=== PATIENT | male | born 1955 | race Caucasian/White ===

== ENCOUNTER → 2016-05-18 | Day surgery (SDC) | payer OTHER ==
[~2016-05-18] MED LIST: ACETAMINOPHEN 1000 MG/100 ML VIAL IV ONE; BUPIVACAINE LIPOSOME PF 1.3% 20 ML VIAL ONE; KETOROLAC TROMETHAMINE 30 MG/ML (IVP) VIAL IV PUSH ONE; LACTATED RINGER'S 1000 ML INJ 1,000 ML ONE; MEPERIDINE HCL 25 MG/ML VIAL ONE; MIDAZOLAM HCL 2 MG/2 ML VIAL ONE; ONDANSETRON HCL 4 MG/2 ML VIAL IV PUSH ONE; PROPOFOL 200 MG/20 ML AMP IV ONE; ceFAZolin 2 GM PREMIX 50 ML ONE
--- NOTE | 2016-05-22 18:29 | MP ---
cc: JUSTIN MCCOY DATE OF SURGERY: 05/18/2016 PREOPERATIVE DIAGNOSIS: Left inguinal hernia. POSTOPERATIVE DIAGNOSIS: Left inguinal hernia. OPERATION: Repair of left inguinal hernia with Procrit mesh. SURGEON: Justin Mccoy MD. ANESTHESIA: General. OPERATIVE FINDINGS: The patient was seen to have a thin walled but large indirect hernia sac. There is a large lipoma in the cord. There is no evidence of incarcerated visceral. No other abnormalities were noted. OPERATIVE PROCEDURE: The patient was brought to the Recovery Room and after satisfactory sedation by Anesthesia the left groin was prepped and draped in the usual sterile fashion. Using Exparel, local anesthesia was achieved and a transverse left inguinal incision was made, carried out sharply through the subcutaneous tissue, with the cautery being is hemostasis. The incision was carried down to the external oblique fascia which was opened in direction of its fibers down to and through the external ring. The underside of the fascia was cleaned and spermatic cord isolated with a [place] drain. The hernia sac was identified and dissected free from the cord structures down to the internal ring where it was circumferentially scored to allow complete reduction within the properitoneal space. The lipoma the cord was dissected free and discarded. Hemostasis was strictly assured. The inguinal floor was then reconstructed with interrupted 0 Vicryl sutures which were brought between the internal oblique and the shelving edge of the inguinal ligament. The internal ring was thus recreated as well. A piece of [employer] mesh was cut to the appropriate shape and secured anterior to the repair by pressing its posterior Vicryl hooks into the surrounding tissue. It was wrapped around the cord laterally and then secured to itself medially. The mesh was then secured to the pubis with a 0 Prolene suture. The repair was checked and found to be intact. Hemostasis was again checked for and found to be satisfactory. The external oblique fascia was closed with a running 3-0 Vicryl suture. The subcutaneous tissue was closed with interrupted 3-0 Vicryl sutures and the skin closed with interrupted 4-0 PDS subcuticular stitches. Steri-Strips were applied and the patient was then taken from the operating room in satisfactory condition having tolerated the procedure well. MD NICHOLAS Fontaine/rochelle /10:42 AM /6:24 PM
== END | disposition home or self-care (01) ==
LOC: ESDC 08:05
PROVIDERS: ATTEND Surgery
DX: K40.90 Unilateral inguinal hernia, without obstruction or gangrene, not specified as recurrent (principal); D17.6 Benign lipomatous neoplasm of spermatic cord
CPT/HCPCS: 00830; 49505; 55520; C1781; C9290; J0131; J0690; J1885; J2175; J2250; J2405; J3010; J7120

== ENCOUNTER 2017-03-11 19:11 | Emergency (ER) | payer OTHER ==
--- NOTE | 2017-03-11 19:59 | PD ---
HPI Chief Complaint: Code Blue Time Seen by Provider: 19:36 Travel History International Travel<30 days: No Contact w/Intl Traveler<30days: No Traveled to known affect area: No History of Present Illness HPI Patient was brought in receiving CPR. Patient is 61 years old with no significant medical history as per his son. His son is a supervisor in charge. He came before patient's arrival to give a quick heads up to let us know that patient was found unresponsive in his driveway by his who started CPR and called 911. When EMS arrived they started CPR. He was seen a few rounds of medication prior to being brought in. They were unable to secure an airway. Patient was brought in being bagged via BVM. As per EMS CPR was started at 1841 by them. Patient as per the son is healthy. 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 When he arrived he was pulseless and CPR was resumed. [facility] Past Medical History Narrative Medical List of his past medical, surgical, social and family history was reviewed from the nursing note. Social History Tobacco Use: No Allergies-Medications Comments Unknown Narrative Medication Unknown Review of Systems ROS Limitations: Unresponsive Except as stated in HPI: all other systems reviewed are Neg Physical Exam Exam Limitations: Clinical Condition Narrative GENERAL: Unresponsive, boarded and collared, CPR in progress SKIN: Pale and cold. HEAD: Atraumatic. Normocephalic. EYES: Pupils equal and round, 5 mm and nonreactive to light. No scleral icterus. No injection or drainage. ENT: No nasal bleeding or discharge. Mucous membranes pink and moist. Mouth was full of bright red blood NECK: Trachea midline. No JVD. CARDIOVASCULAR: Pulseless RESPIRATORY: No spontaneous respirations GASTROINTESTINAL: Abdomen soft, non-tender, nondistended. Hepatic and splenic margins not palpable. MUSCULOSKELETAL: No obvious deformities. No clubbing. No cyanosis. No edema. NEUROLOGICAL: GCS of 3 PSYCHIATRIC: Unable to assess Data Data Orders Orders Type And Screen (03/11/17 19:17) Chest, Single Ap (03/11/17 ) [facility] Medical Decision Making Medical Screen Exam Complete: Yes Emergency Medical Condition: Yes Medical Record Reviewed: Yes Differential Diagnosis Cardiorespiratory arrest, pulmonary hemorrhage Narrative Course 7:53 PM patient was continued with CPR as per ACLS protocol. Emergency release blood was hung 2 units given the massive hemorrhage from the oral cavity. Patient continued to be asystole/pulseless the entire CPR except for one time when it was coarse V. fib and patient was given 200 J of energy. Eventually I pronounced him at 1930. At this point patient had approximately 45 minutes of CPR. The medical futility at this point with further CPR was negligible. I discussed with the family including his , multiple sons and their wives. His was very upset about this sudden and did not understand the reason. I tried to answer all the questions to the best of my ability. I just spoke with Dr. Mustafa who is patient's primary care and let him know that patient should get an autopsy to find exact reason of his and he strongly agreed. Critical Care Narrative Aggregate critical care time was 30 minutes. Time to perform other separately billable procedures was not included in the critical care time. My time did not include minutes spent treating any other patients simultaneously or on activities that did not directly contribute to the patient's treatment. The services I provided to this patient were to treat and/or prevent clinically significant deterioration that could result in: Aggressive high-quality CPR as per ACLS protocol, emergency release blood for hemorrhagic shock, respiratory arrest I provided critical care services requiring my management, as noted below: Chart data review, documentation time, medication orders and management, vital sign assessments/reviewing monitor data, ordering and reviewing lab tests, ordering and interpreting/reviewing x-rays and diagnostic studies, care of the patient and discussion of the patient with the admitting physicians. Procedures Procedure Narrative After the risks and benefits were discussed the following procedure was performed: INTUBATION: The patient was put in optimal position for the procedure. Rapid sequence intubation was initiated by me using 0 milligrams of etomidate IV and 0 milligrams of 0 IV. The patient was intubated with a 7.5 cuffed endotracheal tube. Tube placement was confirmed by visualization of the tube and balloon passing through the cords, capnometry and subsequent chest x-ray. Breath sounds were equal and well aerated bilaterally postintubation. No breath sounds over stomach. Patient tolerated procedure well. Defibrillation: Patient was defibrillated with 200 J of electricity for V. fib EKG Prior to Arrival: No Diagnosis Primary Impression: Cardiorespiratory arrest Additional Impressions: Pulmonary hemorrhage Hemorrhagic shock Disposition: 20 Condition: Yash Diallo MD Mar 11, 2017 19:59
--- NOTE | 2017-03-11 20:42 | RADRPT ---
EXAM DATE/TIME: 03/11/2017 19:15 [place] COMPARISON: No previous studies available for comparison. INDICATIONS : Post intubation. MEDICAL HISTORY : Unobtainable. SURGICAL HISTORY : Unobtainable. ENCOUNTER: Initial ACUITY: 1 day PAIN SCORE: Non-responsive. LOCATION: Bilateral chest FINDINGS: The patient is intubated with the tip of the ET tube at least 4 cm is above the fam. The fam is difficult to actually see on this image. There is an electronic device seen over the chest. The hear t size appears normal. Lungs demonstrate diffuse mixed interstitial and alveolar consolidation. CONCLUSION: Diffuse consolidation likely related to edema. ET tube is in good position. Miguel Garces MD on March 11, 2017 at 20:39 Board Certified Radiologist. This report was verified electronically.
== END 2017-03-11 22:08 | disposition expired ==
LOC: PHED 19:11
DX: I46.9 Cardiac arrest, cause unspecified (principal); R04.89 Hemorrhage from other sites in respiratory passages; R57.8 Other shock
CPT/HCPCS: 31500; 36430; 71010; 92950; 99291; P9016